=== PATIENT | male | born 1925 | race Caucasian/White ===

== ENCOUNTER 2017-01-20 11:17 | Inpatient (IN) | payer OTHER ==
[2017-01-20] VITALS (10 sets, daily range): BP systolic 78–97; BP diastolic 46–72
[~2017-01-20] VITALS: Ht 172.7 cm; Wt 44.9 kg
[2017-01-20 11:41] LABS: BASO % 0 % (0-3); CALCIUM 9.2 mg/dL (8.5-10.1); EOS % 0 % (0-3); GFR 70.4; HEMATOCRIT 45.5 % (39.0-53.0); HEMOGLOBIN 14.8 g/dL (13.0-17.5); LYMPH # 0.6 x10^3/uL (1.0-4.8); LYMPH % 4 % (24-48); MEAN CORPUSCULAR HEMOGLOBIN 29 pg (25-35); MEAN CORPUSCULAR HGB CONC 33 g/dL (31-37); MEAN CORPUSCULAR VOLUME 89 fL (79-100); MONO % 4 % (0-9); NEUT % 92 % (31-73); PLATELET COUNT 414 x10^3/uL (140-400); POTASSIUM 4.3 mmol/L (3.5-5.1); RED BLOOD COUNT 5.11 x10^6/uL (4.30-5.70); WHITE BLOOD COUNT 15.3 x10^3/uL (4.0-11.0)
[2017-01-20] MEDS ORDERED: IPRATRPIUM/ALBUTEROL 0.5/2.5MG 3 ML NEBU. NEB ONE (11:45)
[2017-01-20 11:46] LABS: ALBUMIN 2.6 g/dL (3.4-5.0); DIRECT BILIRUBIN 0.9 mg/dL (0.0-0.2); TOTAL BILIRUBIN 1.3 mg/dL (0.2-1.0)
[2017-01-20 12:14] LABS: PLT ESTIMATE INCREASED (ADEQUATE)
--- NOTE | 2017-01-20 12:28 | EKG ---
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
--- NOTE | 2017-01-20 12:28 | RAD ---
AP portable chest radiograph 01/20/2017 Clinical History: Shortness of breath. An AP portable erect digital radiograph of the chest was obtained. No previous studies are available for comparison. The cardiac silhouette is borderline enlarged. The thoracic aorta is tortuous. Atherosclerotic calcification of the thoracic aorta is seen. Probable areas of honeycombing and bronchiectasis are seen involving both lower lobes. Areas of increased opacity are seen involving both lower lobes which may reflect areas of scarring and/or superimposed infiltrates. No pneumothorax or pleural effusion is seen. Degenerative changes are seen involving the thoracic spine. Impression: 1. Areas of probable honeycombing and bronchiectasis are seen involving both lower lobes. 2. Areas of increased opacity are seen involving both lower lobes which may reflect areas of scarring and/or superimposed infiltrates.
[2017-01-20] MEDS ORDERED: FUROSEMIDE 40 MG/4 ML VIAL. IVP ONE (12:30)
[2017-01-20 12:42] LABS: HCO3 ABG 31 mmol/L (21-28); PCO2 ABG 57 mmHg (35-46); PH ABG 7.35 (7.35-7.45); PO2 ABG 115 mmHg (65-108); SAT O2 ABG 97 % (92-99)
[2017-01-20 12:44] LABS: FIO2 ABG 40
[2017-01-20] MEDS ORDERED: CEFTRIAXONE 1GM IVPB FOR OMNI 50 ML IV ONE ×2 (12:45)
[2017-01-20] MEDS ORDERED: AZITHRMYCN 500MG IVPB FOR OMNI 250 ML IV ONE (12:45)
--- NOTE | 2017-01-20 12:54 | PHYS DOC ---
Past Medical History Past Medical History: High Cholesterol, Hypertension Additional Past Medical Histor: ULCER Additional Past Surgical Histo: POSSIBLE BACK SURGERY Alcohol Use: None Drug Use: None Adult General Chief Complaint Chief Complaint: DYSPNEA/RESPIRATOY DISTRESS HPI HPI 89-year-old male presenting to the emergency department today with worsening shortness of breath. His shortness of breath is been present for the past 24-48 hours. He has a history of hypertension which she stopped taking his medications for approximately one week ago. His 2 daughters are here with him today. They've been trying to get into a doctor however unfortunately have not been able to. His shortness of breath is with exertion. Location lungs. Duration intermittent. Alleviated by BiPAP. EMS was called today after the patient had declined. Upon their arrival the patient was saturating in the mid to low 80 percents. He was placed on BiPAP which improved his saturations and was brought in for further evaluation workup and care. Review of systems is negative for abdominal pain nausea vomiting fevers or chills. All other review of systems is negative unless otherwise noted in history of present illness. Review of Systems Review of Systems SEE ABOVE. Current Medications Current Medications Current Medications Medications (Trade) Dose Ordered Sig/Joseph Start Time Stop Time Status Last Admin Dose Admin Albuterol/ Ipratropium (Duoneb) 3 ml 1X ONCE 01/20/17 11:45 01/20/17 11:46 DC 01/20/17 12:06 3 ML Furosemide (Lasix) 40 mg 1X ONCE 01/20/17 12:30 01/20/17 12:31 DC 01/20/17 12:29 40 MG Allergies Allergies Allergies Coded Allergies Type Severity Reaction Last Updated Verified No Known Drug Allergies 01/20/17 No Physical Exam Physical Exam Constitutional: Well developed, well nourished, pt is tachypneic on bipap, non- toxic appearance. HENT: Normocephalic, atraumatic, bilateral external ears normal, oropharynx moist, no oral exudates, nose normal. [] Eyes: PERRLA, EOMI, conjunctiva normal, no discharge. Neck: Normal range of motion, no tenderness, supple, no stridor. [] Cardiovascular:Heart rate regular rhythm, no murmur [] Lungs & Thorax: Patient has harsh lung sounds on inspiration and expiration with mild wheezing bilaterally. Crackles present in the bases. Abdomen: Bowel sounds normal, soft, no tenderness, no masses, no pulsatile masses. [] Skin: Warm, dry, no erythema, no rash. Back: No tenderness, no CVA tenderness. [] Extremities: No tenderness, no cyanosis, no clubbing, ROM intact, no edema. [] Neurologic: Alert and oriented X 3, normal motor function, normal sensory function, no focal deficits noted. Psychologic: Affect normal, judgement normal, mood normal. [] Current Patient Data Vital Signs Vital Signs Date Time Temp Pulse Resp B/P Pulse Ox O2 Delivery O2 Flow Rate FiO2 01/20/17 12:06 98 BiPAP/CPAP 01/20/17 11:17 99.1 112 50 127/76 40 99.1 Lab Values Laboratory Tests Test 01/20/17 11:20 White Blood Count 15.3x10^3/uL (4.0-11.0) H Red Blood Count 5.11x10^6/uL (4.30-5.70) Hemoglobin 14.8g/dL (13.0-17.5) Hematocrit 45.5% (39.0-53.0) Mean Corpuscular Volume 89fL (79-100) Mean Corpuscular Hemoglobin 29pg (25-35) Mean Corpuscular Hemoglobin Concent 33g/dL (31-37) Red Cell Distribution Width 15.0% (11.5-14.5) H Platelet Count 414x10^3/uL (140-400) H Neutrophils (%) (Auto) 92% (31-73) H Lymphocytes (%) (Auto) 4% (24-48) L Monocytes (%) (Auto) 4% (0-9) Eosinophils (%) (Auto) 0% (0-3) Basophils (%) (Auto) 0% (0-3) Neutrophils # (Auto) 14.1x10^3uL (1.8-7.7) H Lymphocytes # (Auto) 0.6x10^3/uL (1.0-4.8) L Monocytes # (Auto) 0.6x10^3/uL (0.0-1.1) Eosinophils # (Auto) 0.0x10^3/uL (0.0-0.7) Basophils # (Auto) 0.0x10^3/uL (0.0-0.2) Segmented Neutrophils % 83% (35-66) H Band Neutrophils % 7% (0-9) Lymphocytes % 2% (24-48) L Monocytes % 8% (0-10) Platelet Estimate Increased (ADEQUATE) Sodium Level 142mmol/L (136-145) Potassium Level 4.3mmol/L (3.5-5.1) Chloride Level 101mmol/L (98-107) Carbon Dioxide Level 31mmol/L (21-32) Anion Gap 10 (6-14) Blood Urea Nitrogen 23mg/dL (8-26) Creatinine 1.0mg/dL (0.7-1.3) Estimated GFR (Cockcroft-Gault) 70.4 Glucose Level 129mg/dL (70-99) H Lactic Acid Level 2.8mmol/L (0.4-2.0) H Calcium Level 9.2mg/dL (8.5-10.1) Total Bilirubin 1.3mg/dL (0.2-1.0) H Direct Bilirubin 0.9mg/dL (0.0-0.2) H Aspartate Amino Transferase (AST) 33U/L (15-37) Alanine Aminotransferase (ALT) 30U/L (16-63) Alkaline Phosphatase 92U/L (46-116) Troponin I Quantitative 0.018ng/mL (0.000-0.055) KO-[id number]-Type Natriuretic Peptide 2298pg/mL (0-449) H Total Protein 8.0g/dL (6.4-8.2) Albumin 2.6g/dL (3.4-5.0) L Lipase 74U/L (73-393) Laboratory Tests 01/20/17 11:20 Laboratory Tests 01/20/17 11:20 EKG EKG [] EKG shows sinus rhythm with a tachycardic rate. [place] is leftward. Intervals are within normal limits. ST segments are congruent. 3 PVCs noted. Not consistent with acute ischemia. Radiology/Procedures Radiology/Procedures [facility] [address] [place] [address] IMAGING REPORT Signed PATIENT: FILEMON HEATH ACCOUNT: [id number] : 1925 LOCATION: ER AGE: 89 SEX: M EXAM STATUS: REG ER ORD. PHYSICIAN: ANSELMO BOURGEOIS MD REASON: chest pain PROCEDURE: CHEST AP ONLY AP portable chest radiograph 01/20/2017 Clinical History: Shortness of breath. An AP portable erect digital radiograph of the chest was obtained. No previous studies are available for comparison. The cardiac silhouette is borderline enlarged. The thoracic aorta is tortuous. Atherosclerotic calcification of the thoracic aorta is seen. Probable areas of honeycombing and bronchiectasis are seen involving both lower lobes. Areas of increased opacity are seen involving both lower lobes which may reflect areas of scarring and/or superimposed infiltrates. No pneumothorax or pleural effusion is seen. Degenerative changes are seen involving the thoracic spine. Impression: 1. Areas of probable honeycombing and bronchiectasis are seen involving both lower lobes. 2. Areas of increased opacity are seen involving both lower lobes which may reflect areas of scarring and/or superimposed infiltrates. DICTATED and SIGNED BY: IZZY FISHER MD DATE: 01/20/17 1222 CC: ANSELMO BOURGEOIS MD; ANDREW MCKINNON MD ~ [] Course & Med Decision Making Course & Med Decision Making Pertinent Labs and Imaging studies reviewed. (See chart for details) [] 89-year-old gentleman presenting to the emergency Department with hypoxia and shortness of breath. Triage vital signs showed his oxygen saturations had improved and placed on BiPAP by paramedics. Tachycardia present. BiPAP initiated here in the emergency department. Chest x-ray shows volume overload versus infiltrate. Blood work obtained. IV access obtained. Jimenez placed. Lasix administered in the emergency department. The patient was then admitted to our hospital for further evaluation workup and care. Cardiology and pulmonology consulted. I discussed the case with Dr. He around 1 PM at which point the patient's care was transferred. Dragon Disclaimer Dragon Disclaimer This electronic medical record was generated, in whole or in part, using a voice recognition dictation system. Departure Departure Impression: Primary Impression: Acute respiratory failure with hypoxia Additional Impression: CHF (congestive heart failure) Disposition: ADMITTED INPATIENT Admitting Physician: Edwina He Condition: IMPROVED Referrals: ANDREW MCKINNON MD (PCP) Critical Care Time Critical care time was [35] minutes exclusive of procedures. Time was spent evaluating the patient, ordering the administration of ventilation noninvasively , reviewing blood work, reviewing chest x-ray, and discussing with the admitting provider. Problem Qualifiers ANSELMO BOURGEOIS MD Jan 20, 2017 12:54
[2017-01-20] MEDS ORDERED: MORPHINE SULFATE 2 MG/ML DISP.SYRIN. IV PRN (13:00)
[2017-01-20] MEDS ORDERED: ONDANSETRON PF 4 MG/2 ML VIAL. IV PRN ×2 (13:00→15:29)
[2017-01-20 13:07] LABS: BILIRUBIN,URINE SMALL (NEG); GLUCOSE,URINE NEGATIVE (NEG); NITRITE,URINE NEGATIVE (NEG); PROTEIN,URINE NEGATIVE (NEG-TRACE)
[2017-01-20 13:17] LABS: BACTERIA,URINE MANY /HPF (0-FEW)
--- NOTE | 2017-01-20 14:10 | ACF ---
Admission Forms Criteria RESPIRATORY FAILURE [facility] Clinical Indications for Admission to Inpatient Care (Place 'X' for any and all applicable criteria): Hospital admission is needed for appropriate care of the patient because of acute respiratory failure or insufficiency as indicated by ANY ONE of the following(1)(2)(3)(4)(5)(6)(7)(8): [X]I. Mechanical ventilation needed (acute invasive or noninvasive) [X]II. Severe ventilation deficit as indicated by ANY ONE of the following (9) [ ]a) Respiratory acidosis (pH less than 7.32 and partial pressure of carbon dioxide greater than 40 mm Hg (5.3 kPa)) [X]b) Partial pressure of carbon dioxide greater than 44 mm Hg (5.9 kPa ) (new) [ ]c) Airflow measurements less than 25% of predicted (eg, peak expiratory flow rate less than 100 L/minute) [ ]d) Forced vital capacity less than 15 mL/kg of ideal body weight, or 50% decrease in vital capacity from baseline [ ]III. Noncardiac pulmonary edema not resolving with rapid emergency treatment (8) [X]IV. Severe respiratory distress as indicated by ANY ONE of the following: [X]a) Severe tachypnea (respiratory rate greater than 30, greater than 45 for 6-month-old, greater than 60 for ) [ ]b) Severe hypoxemia (partial pressure of oxygen less than 50 mm Hg ( 6.7 kPa) on greater than 50% oxygen or partial pressure of oxygen to FIO2 ratio less than 200) [ ]c) Mental status deterioration from respiratory disease [ ]V. Airway obstruction or inadequate protection [A](10)(11) The original [employer] content created by [employer] has been revised. The portions of the content which have been revised are identified through the use of italic text or in bold, and [facility] has neither reviewed nor approved the modified material. All other unmodified content is copyright [employer]. Please see references footnoted in the original [employer] edition 2016 Admission Criteria Met?: Yes AYAKA TAYLOR Jan 20, 2017 14:10
[2017-01-20] MEDS: IPRATRPIUM/ALBUTEROL 0.5/2.5MG 3 ML NEBU. NEB SCH ×2 (15:08→20:22)
[2017-01-20] MEDS ORDERED: GUAIFENESIN DM 200MG/20MG 10 ML SYRUP. PO PRN (15:30)
[2017-01-20] MEDS ORDERED: ACETAMINOPHEN 500 MG TABLET PO PRN (15:30)
[2017-01-20] MEDS ORDERED: CALCIUM CARBONATE 500 MG TAB.CHEW PO PRN (15:30)
[2017-01-20 15:32] LABS: HCO3 ABG 29 mmol/L (21-28); PCO2 ABG 52 mmHg (35-46); PH ABG 7.37 (7.35-7.45); PO2 ABG 89 mmHg (65-108); SAT O2 ABG 96 % (92-99)
--- NOTE | 2017-01-20 15:41 | PDOC1 ---
History and Physical Date of Admission Date of Admission DATE: 01/20/17 TIME: 15:30 Identification/Chief Complaint Chief Complaint soa, change in MS Problems: Source Source: Caregiver, Chart review, Patient History of Present Illness History of Present Illness 89 y.o male who does not frequent MDs, no past records here, brought in by concerned sisters bec of SOA and change in MS that was transient, As per EMS, hypoxic on the field, 80s sats, started on BIPAP with the ff ABG 7.3/57/115 , NOt confused anymore. No known hx CHF, CXR: I have personally reviewed: Impression: 1. Areas of probable honeycombing and bronchiectasis are seen involving both lower lobes. 2. Areas of increased opacity are seen involving both lower lobes which may reflect areas of scarring and/or superimposed infiltrates. Prev smoker, quit many yrs ago, does not take any real meds at home. No known CAD or stents, BNP 2300, lactate 2,3, VS ok WBC 15, hgb good, platelets 415 Sisters say have been weak, lost a lot of weight > 10 lbs - does not want to see MD lobo he knew they would zero in on his weight loss. HAd c scope many yrs ago, normal Dec appetite, only 3 bites and is done Past Medical History Cardiovascular: No pertinent hx Pulmonary: No pertinent hx GI: No pertinent hx Heme/Onc: No pertinent hx Hepatobiliary: No pertinent hx Psych: No pertinent hx Rheumatologic: No pertinent hx Infectious disease: No pertinent hx ENT: No pertinent hx Renal/: No pertinent hx Endocrine: No pertinent hx Dermatology: No pertinent hx Past Surgical History Past Surgical History: No pertinent history Family History Family History: No Significant Social History Smoke: Quit ALCOHOL: none Drugs: None Current Problem List Problem List Problems Medical Problems: (1) Acute respiratory failure with hypoxia Status: Acute (2) CHF (congestive heart failure) Status: Acute Problems: Current Medications Current Medications Current Medications Albuterol/ Ipratropium (Duoneb) 3 ml 1X ONCE NEB Last administered on 12:06; Start 01/20/17 at 11:45; Stop 01/20/17 at 11:46; Status DC Furosemide 40 mg 40 mg 1X ONCE IVP Last administered on 01/20/17 12:29; Start 01/20/17 at 12:30; Stop 01/20/17 at 12:31; Status DC Azithromycin 250 ml @ 250 mls/hr 1X ONCE IV Last administered on 01/20/17 13 :26; Start 01/20/17 at 12:45; Stop 01/20/17 at 13:44; Status DC Ceftriaxone Sodium 50 ml @ 100 mls/hr 1X ONCE IV ; Start 01/20/17 at 12:45; Stop 01/20/17 at 12:45; Status DC Ceftriaxone Sodium (Rocephin 1gm Ivpb For Omni) 50 ml @ 100 mls/hr 1X ONCE IV Last administered on 01/20/17 13:10; Start 01/20/17 at 12:45; Stop 01/20/17 at 13:14; Status DC Ondansetron HCl (Zofran) 4 mg PRN Q8HRS PRN IV NAUSEA/VOMITING; Start 01/20/17 at 13:00; Stop 01/21/17 at 12:59 Morphine Sulfate 2 mg PRN Q2HR PRN IV PAIN; Start 01/20/17 at 13:00; Stop 01/21 at 12:59 Albuterol/ Ipratropium (Duoneb) 3 ml RTQID NEB Last administered on 01/20/17 15:08; Start 01/20/17 at 16:00; Stop 01/21/17 at 15:59 Allergies Allergies: Coded Allergies: No Known Drug Allergies (Unverified , 01/20/17) ROS Review of System limited on bipap, positive for weight loss and dec appetite General: YES: Other (weight loss) PSYCHOLOGICAL ROS: No: Anxiety, Behavioral Disorder, Concentration difficultie , Decreased libido, Depression, Disorientation, Hallucinations, Hostility, Irritablity, Memory difficulties, Mood Swings, Obsessive thoughts, Other, Physical abuse, Sexual abuse, Sleep disturbances, Suicidal ideation Eyes: No Blurry vision, No Decreased vision, No Double vision, No Dry eyes, No Excessive tearing, No Eye Pain, No Itchy Eyes, No Loss of vision, No Other, No Photophobia, No Scotomata, No Uses contacts, No Uses glasses HEENT: No: Epistaxis, Heacaches, Hearing change, Nasal congestion, Nasal discharge, Oral lesions, Other, Sinus pain, Sneezing, Snoring, Sore Throat, Tinnitus, Vertigo, Visual Changes, Vocal changes Hematological and Lymphatic: No: Bleeding Problems, Blood Clots, Blood Transfusions, Brusing, Night Sweats, Other, Pallor, Swollen Lymph Nodes Respiratory: No: Cough, Hemoptysis, Orthopnea, Other, Pleuritic Pain, SOB with excertion, Shortness of breath, Sputum Changes, Stridor, Tachypnea, Wheezing Cardiovascular: No Chest Pain, No Edema, No Lt Headedness, No Orthopnea, No Other, No Palpitations, No Paroxysmal Noc. Dyspnea Gastrointestinal: No Abdominal Pain, No Constipation, No Diarrhea, No Hematochezia, No Melena, No Nausea, No Other, No Vomiting Genitourinary: No , No , No , No , No , No , No , No Discharge, No Dysuria, No Flank Pain, No Frequency, No Hematuria, No Incontinence, No Other, No Pain, No Retention, No Urgency Musculoskeletal: No Gait Disturbance, No Joint Pain, No Joint Stiffness, No Joint Swelling, No Muscle Pain, No Muscular Weakness, No Other, No Pain In:, No Swelling In: Neurological: No Behavorial Changes, No Bowel/Bladder ControlChng, No Confusion , No Dizziness, No Gait Disturbance, No Headaches, No Impaired Coord/balance, No Memory Loss, No Numbness/Tingling, No Other, No Seizures, No Speech Problems , No Tremors, No Visual Changes, No Weakness Skin: No Acne, No Dry Skin, No Eczema, No Hair Changes, No Lumps, No Mole Changes, No Mottling, No Nail Changes, No Other, No Pruritus, No Rash, No Skin Lesion Changes Physical Exam General: Other (on BIPAP, awake, oriented, smiles) HEENT: Atraumatic, PERRLA, EOMI Lungs: Normal air movement, Other (no rales, rhocnhi, wheezing) Heart: S1S2, RRR, no thrills, no rubs Cardiovascular: S1, S2 Breasts: Normal Male Genitals Exam: normal genitalia, normal prostate Rectal Exam: not examined PELVIC: Nml ext genitalia Extremities: No clubbing, No cyanosis, No edema, Normal pulses, No tenderness/ swelling Skin: No rashes, No breakdown, No significant lesion Neuro: Normal gait, Normal speech, Strength at 5/5 X4 ext, Normal tone, Sensation intact, Cranial nerves 3-12 NL, Reflexes 2+ Psych/Mental Status: Mental status NL, Mood NL Vitals Vitals Vital Signs Date Time Temp Pulse Resp B/P Pulse Ox O2 Delivery O2 Flow Rate FiO2 01/20/17 15:09 96 BiPAP/CPAP 01/20/17 13:30 102 44 35 01/20/17 13:15 105/60 01/20/17 11:17 99.1 99.1 Labs Labs Laboratory Tests Test 01/20/17 11:20 01/20/17 12:23 01/20/17 12:45 White Blood Count 15.3x10^3/uL (4.0-11.0) Red Blood Count 5.11x10^6/uL (4.30-5.70) Hemoglobin 14.8g/dL (13.0-17.5) Hematocrit 45.5% (39.0-53.0) Mean Corpuscular Volume 89fL (79-100) Mean Corpuscular Hemoglobin 29pg (25-35) Mean Corpuscular Hemoglobin Concent 33g/dL (31-37) Red Cell Distribution Width 15.0% (11.5-14.5) Platelet Count 414x10^3/uL (140-400) Neutrophils (%) (Auto) 92% (31-73) Lymphocytes (%) (Auto) 4% (24-48) Monocytes (%) (Auto) 4% (0-9) Eosinophils (%) (Auto) 0% (0-3) Basophils (%) (Auto) 0% (0-3) Neutrophils # (Auto) 14.1x10^3uL (1.8-7.7) Lymphocytes # (Auto) 0.6x10^3/uL (1.0-4.8) Monocytes # (Auto) 0.6x10^3/uL (0.0-1.1) Eosinophils # (Auto) 0.0x10^3/uL (0.0-0.7) Basophils # (Auto) 0.0x10^3/uL (0.0-0.2) Segmented Neutrophils % 83% (35-66) Band Neutrophils % 7% (0-9) Lymphocytes % 2% (24-48) Monocytes % 8% (0-10) Platelet Estimate Increased (ADEQUATE) Sodium Level 142mmol/L (136-145) Potassium Level 4.3mmol/L (3.5-5.1) Chloride Level 101mmol/L (98-107) Carbon Dioxide Level 31mmol/L (21-32) Anion Gap 10 (6-14) Blood Urea Nitrogen 23mg/dL (8-26) Creatinine 1.0mg/dL (0.7-1.3) Estimated GFR (Cockcroft-Gault) 70.4 Glucose Level 129mg/dL (70-99) Lactic Acid Level 2.8mmol/L (0.4-2.0) Calcium Level 9.2mg/dL (8.5-10.1) Magnesium Level 2.0mg/dL (1.8-2.4) Total Bilirubin 1.3mg/dL (0.2-1.0) Direct Bilirubin 0.9mg/dL (0.0-0.2) Aspartate Amino Transf (AST/SGOT) 33U/L (15-37) Alanine Aminotransferase (ALT/SGPT) 30U/L (16-63) Alkaline Phosphatase 92U/L (46-116) Troponin I Quantitative 0.018ng/mL (0.000-0.055) MS-Ypi-L-Type Natriuretic Peptide 2298pg/mL (0-449) Total Protein 8.0g/dL (6.4-8.2) Albumin 2.6g/dL (3.4-5.0) Lipase 74U/L (73-393) O2 Saturation 97% (92-99) Arterial Blood pH 7.35 (7.35-7.45) Arterial Blood pCO2 at Patient Temp 57mmHg (35-46) Arterial Blood pO2 at Patient Temp 115mmHg (65-108) Arterial Blood HCO3 31mmol/L (21-28) Arterial Blood Base Excess 3mmol/L (-3-3) FiO2 40 Urine Collection Type Unknown Urine Color Joseline Urine Clarity Clear Urine pH 6.0 Urine Specific [place] 1.020 Urine Protein Negativemg/dL (NEG-TRACE) Urine Glucose (UA) Negativemg/dL (NEG) Urine Ketones (Stick) Tracemg/dL (NEG) Urine Blood Moderate (NEG) Urine Nitrite Negative (NEG) Urine Bilirubin Small (NEG) Urine Urobilinogen Dipstick 2.0mg/dL (0.2 mg/dL) Urine Leukocyte Esterase Moderate (NEG) Urine RBC 6-10/HPF (0-2) Urine WBC 11-20/HPF (0-4) Urine Bacteria Many/HPF (0-FEW) Urine Mucus Mod/LPF Laboratory Tests Test 01/20/17 11:20 01/20/17 12:23 01/20/17 12:45 White Blood Count 15.3x10^3/uL (4.0-11.0) Red Blood Count 5.11x10^6/uL (4.30-5.70) Hemoglobin 14.8g/dL (13.0-17.5) Hematocrit 45.5% (39.0-53.0) Mean Corpuscular Volume 89fL (79-100) Mean Corpuscular Hemoglobin 29pg (25-35) Mean Corpuscular Hemoglobin Concent 33g/dL (31-37) Red Cell Distribution Width 15.0% (11.5-14.5) Platelet Count 414x10^3/uL (140-400) Neutrophils (%) (Auto) 92% (31-73) Lymphocytes (%) (Auto) 4% (24-48) Monocytes (%) (Auto) 4% (0-9) Eosinophils (%) (Auto) 0% (0-3) Basophils (%) (Auto) 0% (0-3) Neutrophils # (Auto) 14.1x10^3uL (1.8-7.7) Lymphocytes # (Auto) 0.6x10^3/uL (1.0-4.8) Monocytes # (Auto) 0.6x10^3/uL (0.0-1.1) Eosinophils # (Auto) 0.0x10^3/uL (0.0-0.7) Basophils # (Auto) 0.0x10^3/uL (0.0-0.2) Segmented Neutrophils % 83% (35-66) Band Neutrophils % 7% (0-9) Lymphocytes % 2% (24-48) Monocytes % 8% (0-10) Platelet Estimate Increased (ADEQUATE) Sodium Level 142mmol/L (136-145) Potassium Level 4.3mmol/L (3.5-5.1) Chloride Level 101mmol/L (98-107) Carbon Dioxide Level 31mmol/L (21-32) Anion Gap 10 (6-14) Blood Urea Nitrogen 23mg/dL (8-26) Creatinine 1.0mg/dL (0.7-1.3) Estimated GFR (Cockcroft-Gault) 70.4 Glucose Level 129mg/dL (70-99) Lactic Acid Level 2.8mmol/L (0.4-2.0) Calcium Level 9.2mg/dL (8.5-10.1) Magnesium Level 2.0mg/dL (1.8-2.4) Total Bilirubin 1.3mg/dL (0.2-1.0) Direct Bilirubin 0.9mg/dL (0.0-0.2) Aspartate Amino Transf (AST/SGOT) 33U/L (15-37) Alanine Aminotransferase (ALT/SGPT) 30U/L (16-63) Alkaline Phosphatase 92U/L (46-116) Troponin I Quantitative 0.018ng/mL (0.000-0.055) SV-Nso-O-Type Natriuretic Peptide 2298pg/mL (0-449) Total Protein 8.0g/dL (6.4-8.2) Albumin 2.6g/dL (3.4-5.0) Lipase 74U/L (73-393) O2 Saturation 97% (92-99) Arterial Blood pH 7.35 (7.35-7.45) Arterial Blood pCO2 at Patient Temp 57mmHg (35-46) Arterial Blood pO2 at Patient Temp 115mmHg (65-108) Arterial Blood HCO3 31mmol/L (21-28) Arterial Blood Base Excess 3mmol/L (-3-3) FiO2 40 Urine Collection Type Unknown Urine Color Joseline Urine Clarity Clear Urine pH 6.0 Urine Specific [place] 1.020 Urine Protein Negativemg/dL (NEG-TRACE) Urine Glucose (UA) Negativemg/dL (NEG) Urine Ketones (Stick) Tracemg/dL (NEG) Urine Blood Moderate (NEG) Urine Nitrite Negative (NEG) Urine Bilirubin Small (NEG) Urine Urobilinogen Dipstick 2.0mg/dL (0.2 mg/dL) Urine Leukocyte Esterase Moderate (NEG) Urine RBC 6-10/HPF (0-2) Urine WBC 11-20/HPF (0-4) Urine Bacteria Many/HPF (0-FEW) Urine Mucus Mod/LPF VTE Prophylaxis Ordered VTE Prophylaxis Devices: Yes VTE Pharmacological Prophylaxi: Yes Assessment/Plan Assessment/Plan 1. Acute hypoxic respi failure 2. Possible chf/pulm edema? 3. Elevated BNP 4. Weight loss, poor PO, dec appetite 5. GEriatric, frailty, high fall risk 6. Transient encephalopathy likey sec to hypoxia, POA, resolved 7,. Mod PCM 8. SIRS pOA, no sepsis 9. reactive thrombocytosis 10. Elevated lactate 11. Leukocytosis, reactive vs infectious PLAN: ICU admit BIPAP Pulmo and cards consult nebs EMpiric antibiotics Nutrition consult Appetite stimulant DVT prophy MAy check PSA Pt/OT SW for SNU screening LAbs again in AM Dw sisters, seen at ER Dw ER ADELINA Peralta MD Jan 20, 2017 15:40
[2017-01-20] MEDS ORDERED: PANTOPRAZOLE 40 MG TABLET.DR. PO SCH (16:00)
[2017-01-20] MEDS ORDERED: PNEUMOCOCCAL VAX SCREEN BY RX. MC ONE (16:00)
[2017-01-20] MEDS ORDERED: ENOXAPARIN 40 MG/0.4 ML SYRINGE. SQ SCH (16:00)
[2017-01-20] MEDS ORDERED: AMLO5TAB2 PO (16:27)
[2017-01-20] MEDS ORDERED: METO100T2 PO (16:27)
[2017-01-20] MEDS ORDERED: [UNRECOGNIZED DRUG - OTHER] (16:27)
[2017-01-20] MEDS ORDERED: LOVA40TA2 PO (16:27)
[2017-01-20 18:38] LABS: FIO2 ABG 35
[2017-01-21] VITALS (17 sets, daily range): BP systolic 81–110; BP diastolic 46–96
[2017-01-21 01:11] LABS: BASO % 0 % (0-3); EOS % 0 % (0-3); HEMATOCRIT 40.2 % (39.0-53.0); LYMPH # 0.6 x10^3/uL (1.0-4.8); LYMPH % 5 % (24-48); MEAN CORPUSCULAR HEMOGLOBIN 29 pg (25-35); MEAN CORPUSCULAR HGB CONC 32 g/dL (31-37); MEAN CORPUSCULAR VOLUME 89 fL (79-100); MONO % 6 % (0-9); NEUT % 89 % (31-73); PLATELET COUNT 332 x10^3/uL (140-400); RED CELL DISTRIBUTION WIDTH 14.9 % (11.5-14.5); WHITE BLOOD COUNT 12.3 x10^3/uL (4.0-11.0)
[2017-01-21 01:19] LABS: CALCIUM 8.8 mg/dL (8.5-10.1); GFR 70.4
[2017-01-21] MEDS ORDERED: MEGESTROL 20 MG TABLET. PO SCH (09:00)
[2017-01-21] MEDS ORDERED: PNEUMOC CONJ VACC 23-VALENT 0.5 ML VIAL. VAX IM ONE (09:00)
[2017-01-21] MEDS: IPRATRPIUM/ALBUTEROL 0.5/2.5MG 3 ML NEBU. NEB SCH ×2 (09:15→16:03)
--- NOTE | 2017-01-21 10:53 | PDOC2 ---
YAMILKA NEFF COMMUNITY ASSOCIATE 01/21/17 1053: CARDIAC CONSULT DATE OF CONSULT Date of Consult DATE: 01/21/17 TIME: 10:49 REASON FOR CONSULT Reason for Consult: CHF REFERRING PHYSICIAN Referring Physician: Dr. Santa SOURCE Source: Chart review HISTORY OF PRESENT ILLNESS HISTORY OF PRESENT ILLNESS This is an 89 yo male who presented with complaints of shortness of breath. Patient reports shortness of breath has been ongoing for a couple of years. Worse, recently. Reports cough associated with eating/drinking for the last couple of months. Denies any LE edema or orthopnea. Not previously on oxygen therapy. Stop taking all medications a couple of weeks ago. Reports decreased appetite and weight loss of greater than 15lbs over the last 2-3 months or so. Additionally denies any chest pain, palpitations, dizziness, or diaphoresis. No recent illness or fevers. Reports having sore on bottom; is painful. Lives at home alone but daughter prepare meals for 1-2 weeks at a time. PAST MEDICAL HISTORY Cardiovascular: HTN, Hyperlipidemia Pulmonary: No pertinent hx GI: No pertinent hx Heme/Onc: No pertinent hx Hepatobiliary: No pertinent hx Psych: No pertinent hx Musculoskeletal: Osteoarthritis Infectious disease: No pertinent hx ENT: No pertinent hx Renal/: No pertinent hx Endocrine: No pertinent hx Dermatology: No pertinent hx PAST SURGICAL HISTORY Past Surgical History: Total knee replacement (bilateral ) FAMILY HISTORY Family History: Hypertension SOCIAL HISTORY Smoke: No ALCOHOL: none Drugs: None Lives: Alone CURRENT MEDICATIONS CURRENT MEDICATIONS Current Medications Medications (Trade) Dose Ordered Sig/Joseph Route PRN Reason Start Time Stop Time Status Last Admin Dose Admin Albuterol/ Ipratropium (Duoneb) 3 ml 1X ONCE NEB 01/20/17 11:45 01/20/17 11:46 DC 01/20/17 12:06 Furosemide 40 mg 40 mg 1X ONCE IVP 01/20/17 12:30 01/20/17 12:31 DC 01/20/17 12:29 Azithromycin 250 ml @ 250 mls/hr 1X ONCE IV 01/20/17 12:45 01/20/17 13:44 DC 01/20/17 13:26 Ceftriaxone Sodium (Rocephin 1gm Ivpb For Omni) 50 ml @ 100 mls/hr 1X ONCE IV 01/20/17 12:45 01/20/17 13:14 DC 01/20/17 13:10 Morphine Sulfate 2 mg PRN Q2HR PRN IV PAIN 01/20/17 13:00 01/21/17 12:59 01/20/17 19:52 Albuterol/ Ipratropium 3 ml 3 ml RTQID NEB 01/20/17 16:00 01/21/17 15:59 01/21/17 09:15 Levofloxacin/ Dextrose (LEVAQUIN 500mg PREMIX) 100 ml @ 100 mls/hr Q24H IV 01/20/17 16:00 01/20/17 17:56 Enoxaparin Sodium (Lovenox 40mg Syringe) 40 mg Q24H SQ 01/20/17 16:00 01/20/17 17:58 Pantoprazole Sodium (Protonix) 40 mg DAILYAC PO 01/20/17 16:00 01/20/17 17:58 ALLERGIES ALLERGIES: Coded Allergies: No Known Drug Allergies (Unverified , 01/20/17) ROS Review of System 14 point ROS conducted with pertinent positives noted above in HPI PHYSICAL EXAM General: Alert, Oriented X3, Cooperative, No acute distress HEENT: Atraumatic, Mucous membr. moist/pink Lungs: Normal air movement Heart: Regular rate, Normal S1, Normal S2 Abdomen: Soft Extremities: No edema, Normal pulses Skin: No significant lesion Neuro: Normal speech, Sensation intact Psych/Mental Status: Mental status NL, Mood NL MUSCULOSKELETAL: Osteoarthritic changes both hands VITALS VITALS Vital Signs Date Time Temp Pulse Resp B/P Pulse Ox O2 Delivery O2 Flow Rate FiO2 01/21/17 09:15 98 Nasal Cannula 5.0 01/21/17 06:00 96 28 104/58 01/21/17 04:00 98.9 98.9 LABS Lab: Laboratory Tests Test 01/20/17 11:20 01/20/17 12:23 01/20/17 12:45 01/20/17 15:15 White Blood Count 15.3x10^3/uL (4.0-11.0) Red Blood Count 5.11x10^6/uL (4.30-5.70) Hemoglobin 14.8g/dL (13.0-17.5) Hematocrit 45.5% (39.0-53.0) Mean Corpuscular Volume 89fL (79-100) Mean Corpuscular Hemoglobin 29pg (25-35) Mean Corpuscular Hemoglobin Concent 33g/dL (31-37) Red Cell Distribution Width 15.0% (11.5-14.5) Platelet Count 414x10^3/uL (140-400) Neutrophils (%) (Auto) 92% (31-73) Lymphocytes (%) (Auto) 4% (24-48) Monocytes (%) (Auto) 4% (0-9) Eosinophils (%) (Auto) 0% (0-3) Basophils (%) (Auto) 0% (0-3) Neutrophils # (Auto) 14.1x10^3uL (1.8-7.7) Lymphocytes # (Auto) 0.6x10^3/uL (1.0-4.8) Monocytes # (Auto) 0.6x10^3/uL (0.0-1.1) Eosinophils # (Auto) 0.0x10^3/uL (0.0-0.7) Basophils # (Auto) 0.0x10^3/uL (0.0-0.2) Segmented Neutrophils % 83% (35-66) Band Neutrophils % 7% (0-9) Lymphocytes % 2% (24-48) Monocytes % 8% (0-10) Platelet Estimate Increased (ADEQUATE) Sodium Level 142mmol/L (136-145) Potassium Level 4.3mmol/L (3.5-5.1) Chloride Level 101mmol/L (98-107) Carbon Dioxide Level 31mmol/L (21-32) Anion Gap 10 (6-14) Blood Urea Nitrogen 23mg/dL (8-26) Creatinine 1.0mg/dL (0.7-1.3) Estimated GFR (Cockcroft-Gault) 70.4 Glucose Level 129mg/dL (70-99) Lactic Acid Level 2.8mmol/L (0.4-2.0) Calcium Level 9.2mg/dL (8.5-10.1) Magnesium Level 2.0mg/dL (1.8-2.4) Total Bilirubin 1.3mg/dL (0.2-1.0) Direct Bilirubin 0.9mg/dL (0.0-0.2) Aspartate Amino Transf (AST/SGOT) 33U/L (15-37) Alanine Aminotransferase (ALT/SGPT) 30U/L (16-63) Alkaline Phosphatase 92U/L (46-116) Troponin I Quantitative 0.018ng/mL (0.000-0.055) ZO-Gex-S-Type Natriuretic Peptide 2298pg/mL (0-449) Total Protein 8.0g/dL (6.4-8.2) Albumin 2.6g/dL (3.4-5.0) Lipase 74U/L (73-393) O2 Saturation 97% (92-99) 96% (92-99) Arterial Blood pH 7.35 (7.35-7.45) 7.37 (7.35-7.45) Arterial Blood pCO2 at Patient Temp 57mmHg (35-46) 52mmHg (35-46) Arterial Blood pO2 at Patient Temp 115mmHg (65-108) 89mmHg (65-108) Arterial Blood HCO3 31mmol/L (21-28) 29mmol/L (21-28) Arterial Blood Base Excess 3mmol/L (-3-3) 3mmol/L (-3-3) FiO2 40 35 Urine Collection Type Unknown Urine Color Joseline Urine Clarity Clear Urine pH 6.0 Urine Specific Cornish 1.020 Urine Protein Negativemg/dL (NEG-TRACE) Urine Glucose (UA) Negativemg/dL (NEG) Urine Ketones (Stick) Tracemg/dL (NEG) Urine Blood Moderate (NEG) Urine Nitrite Negative (NEG) Urine Bilirubin Small (NEG) Urine Urobilinogen Dipstick 2.0mg/dL (0.2 mg/dL) Urine Leukocyte Esterase Moderate (NEG) Urine RBC 6-10/HPF (0-2) Urine WBC 11-20/HPF (0-4) Urine Bacteria Many/HPF (0-FEW) Urine Mucus Mod/LPF Test 01/20/17 15:23 01/20/17 18:30 01/21/17 01:00 Lactic Acid Level 2.2mmol/L (0.4-2.0) Troponin I Quantitative 0.032ng/mL (0.000-0.055) 0.019ng/mL (0.000-0.055) White Blood Count 12.3x10^3/uL (4.0-11.0) Red Blood Count 4.50x10^6/uL (4.30-5.70) Hemoglobin 13.0g/dL (13.0-17.5) Hematocrit 40.2% (39.0-53.0) Mean Corpuscular Volume 89fL (79-100) Mean Corpuscular Hemoglobin 29pg (25-35) Mean Corpuscular Hemoglobin Concent 32g/dL (31-37) Red Cell Distribution Width 14.9% (11.5-14.5) Platelet Count 332x10^3/uL (140-400) Neutrophils (%) (Auto) 89% (31-73) Lymphocytes (%) (Auto) 5% (24-48) Monocytes (%) (Auto) 6% (0-9) Eosinophils (%) (Auto) 0% (0-3) Basophils (%) (Auto) 0% (0-3) Neutrophils # (Auto) 11.0x10^3uL (1.8-7.7) Lymphocytes # (Auto) 0.6x10^3/uL (1.0-4.8) Monocytes # (Auto) 0.7x10^3/uL (0.0-1.1) Eosinophils # (Auto) 0.0x10^3/uL (0.0-0.7) Basophils # (Auto) 0.0x10^3/uL (0.0-0.2) Sodium Level 144mmol/L (136-145) Potassium Level 4.0mmol/L (3.5-5.1) Chloride Level 103mmol/L (98-107) Carbon Dioxide Level 34mmol/L (21-32) Anion Gap 7 (6-14) Blood Urea Nitrogen 28mg/dL (8-26) Creatinine 1.0mg/dL (0.7-1.3) Estimated GFR (Cockcroft-Gault) 70.4 Glucose Level 100mg/dL (70-99) Calcium Level 8.8mg/dL (8.5-10.1) ASSESSMENT/PLAN ASSESSMENT/PLAN 1. Mildly elevated NT Pro BNP 2. Acute hypoxic respiratory failure 3. Leukocytosis with ? sepsis 4. ? aspiration 5. Tachycardia, reactive 6. H/o hypertension with present hypotension 7. Hyperlipidemia 8. Weight Loss; failure to thrive Recommendations Will check limited echo to evaluate LV function Pro BNP mildly elevated but is insignificant based upon age-adjustment. Do not suspect overt HF Will give gentle fluid bolus ST to evaluate swallow. Supportive care Follow pulmonary recommendations Palliative care consulted Problems: SULY VELOZ MD 01/21/17 1611: CARDIAC CONSULT ALLERGIES ALLERGIES: Coded Allergies: No Known Drug Allergies (Unverified , 01/20/17) ASSESSMENT/PLAN ASSESSMENT/PLAN Pt. seen and examined. Agree with above [employer] note. 89 y.o male with dyspnea. Normal cardiac exam. Echo grossly normal He is cachectic, has aspiration, possible infiltrates on CXR with elevated WBC and left shift in the setting of tachycardia, hypoxia. No significant cardiac issues. He is likely severely depressed Discussed with family that from a CV pers he is stable but has other issues as noted above Will follow prn. Thanks for consultation Problems: YAMILKA NEFF APRN Jan 21, 2017 10:53 SULY VELOZ MD Jan 21, 2017 16:11
[2017-01-21] MEDS ORDERED: IV NORMAL SALINE 1000ML BAG 500 ML IV ONE (11:15)
--- NOTE | 2017-01-21 12:03 | PDOC ---
Provider Note Provider Note dictated THAD EATON MD Jan 21, 2017 12:03
--- NOTE | 2017-01-21 12:41 | PDOC ---
PROGRESS NOTES Chief Complaint Chief Complaint CC: acute hypoxic respiratory failure, AMS History of Present Illness History of Present Illness Patient seen and evaluated at bedside. breathing improvement with bipap. Patient became hypotensive and tachycardic when attempting to sit him up. Appears frail; limited response, not following commands. Per family, patient has had over 10lbs of weight loss recently. Family adamantly denies patient is or was a smoker. family agreeable with palliative consult. d/w family and nurse. Vitals Vitals Vital Signs Date Time Temp Pulse Resp B/P Pulse Ox O2 Delivery O2 Flow Rate FiO2 01/21/17 12:00 Nasal Cannula 4.0 01/21/17 12:00 110 37 95/46 97 01/21/17 08:00 98.7 98.7 Physical Exam General: Alert, No acute distress, Other (frail, facial wasting, malnourished appearing ) Heart: Normal S1, Normal S2, Other (tachycardic ) Lungs: Other (coarse and diminished breath sounds bilaterally. On 4L NC. negative chest retractions and/or other accessory muscle use ) Abdomen: Soft, No tenderness Extremities: No cyanosis, No edema, No tenderness/swelling, Other Skin: No rashes, No breakdown, No significant lesion Labs LABS Laboratory Tests Test 01/20/17 12:45 01/20/17 15:15 01/20/17 15:23 01/20/17 18:30 Urine Collection Type Unknown Urine Color Joseline Urine Clarity Clear Urine pH 6.0 Urine Specific [place] 1.020 Urine Protein Negativemg/dL (NEG-TRACE) Urine Glucose (UA) Negativemg/dL (NEG) Urine Ketones (Stick) Tracemg/dL (NEG) Urine Blood Moderate (NEG) Urine Nitrite Negative (NEG) Urine Bilirubin Small (NEG) Urine Urobilinogen Dipstick 2.0mg/dL (0.2 mg/dL) Urine Leukocyte Esterase Moderate (NEG) Urine RBC 6-10/HPF (0-2) Urine WBC 11-20/HPF (0-4) Urine Bacteria Many/HPF (0-FEW) Urine Mucus Mod/LPF O2 Saturation 96% (92-99) Arterial Blood pH 7.37 (7.35-7.45) Arterial Blood pCO2 at Patient Temp 52mmHg (35-46) Arterial Blood pO2 at Patient Temp 89mmHg (65-108) Arterial Blood HCO3 29mmol/L (21-28) Arterial Blood Base Excess 3mmol/L (-3-3) FiO2 35 Lactic Acid Level 2.2mmol/L (0.4-2.0) Troponin I Quantitative 0.032ng/mL (0.000-0.055) Test 01/21/17 01:00 White Blood Count 12.3x10^3/uL (4.0-11.0) Red Blood Count 4.50x10^6/uL (4.30-5.70) Hemoglobin 13.0g/dL (13.0-17.5) Hematocrit 40.2% (39.0-53.0) Mean Corpuscular Volume 89fL (79-100) Mean Corpuscular Hemoglobin 29pg (25-35) Mean Corpuscular Hemoglobin Concent 32g/dL (31-37) Red Cell Distribution Width 14.9% (11.5-14.5) Platelet Count 332x10^3/uL (140-400) Neutrophils (%) (Auto) 89% (31-73) Lymphocytes (%) (Auto) 5% (24-48) Monocytes (%) (Auto) 6% (0-9) Eosinophils (%) (Auto) 0% (0-3) Basophils (%) (Auto) 0% (0-3) Neutrophils # (Auto) 11.0x10^3uL (1.8-7.7) Lymphocytes # (Auto) 0.6x10^3/uL (1.0-4.8) Monocytes # (Auto) 0.7x10^3/uL (0.0-1.1) Eosinophils # (Auto) 0.0x10^3/uL (0.0-0.7) Basophils # (Auto) 0.0x10^3/uL (0.0-0.2) Sodium Level 144mmol/L (136-145) Potassium Level 4.0mmol/L (3.5-5.1) Chloride Level 103mmol/L (98-107) Carbon Dioxide Level 34mmol/L (21-32) Anion Gap 7 (6-14) Blood Urea Nitrogen 28mg/dL (8-26) Creatinine 1.0mg/dL (0.7-1.3) Estimated GFR (Cockcroft-Gault) 70.4 Glucose Level 100mg/dL (70-99) Calcium Level 8.8mg/dL (8.5-10.1) Troponin I Quantitative 0.019ng/mL (0.000-0.055) Review of Systems Review of Systems (+) generalized weakness (+) altered mental status (+) 10lb weight loss ROS limited secondary patient's mental status. Assessment and Plan Assessmemt and Plan Problems Medical Problems: (1) Acute respiratory failure with hypoxia Status: Acute (2) CHF (congestive heart failure) Status: Acute Assessment: 1. Acute hypoxic respiratory failure 2. metabolic encephalopathy, continues to have diminished mentation and consciousness 3. SIRS, POA. probable Sepsis WBC >15, possible sources of infection (lung vs. urine), lactic acid of 2.8, and AMS 3. bronchietasis vs. lower lobe opacities, seen on xray 4. respiratory acidosis, POA, currently resolved 5. frailty with weight loss ; probable failure to thrive 6. leukocytosis, reactive vs. infectious 7. elevated lactate 8. elevated BNP, hold IVF to prevent volume overload. Plan: 1.) continue ICU monitoring and care 2.) maintain O2 saturation >90%, continue duoneb treatments PRN. 3.) f/u blood cultures 4.) continue levofloxacin 5.) appreciate subspecialty input 6.) palliative care consult 7.) check AM labs; replete electrolytes as needed. trend lactate. 8.) dietary consult, recommendations appreciated. swallow study pending 9.) PT/OT 10.) continue discharge planning with SNU evaluation 11.) pending Echocardiogram per cardiology 12.) DVT ppx: lovenox, GI ppx: protonix. Pt is DNR Problems: Comment Review of Relevant I have reviewed the following items gerard (where applicable) has been applied. Labs Laboratory Tests Test 01/20/17 11:20 01/20/17 12:23 01/20/17 12:45 01/20/17 15:15 White Blood Count 15.3x10^3/uL (4.0-11.0) Red Blood Count 5.11x10^6/uL (4.30-5.70) Hemoglobin 14.8g/dL (13.0-17.5) Hematocrit 45.5% (39.0-53.0) Mean Corpuscular Volume 89fL (79-100) Mean Corpuscular Hemoglobin 29pg (25-35) Mean Corpuscular Hemoglobin Concent 33g/dL (31-37) Red Cell Distribution Width 15.0% (11.5-14.5) Platelet Count 414x10^3/uL (140-400) Neutrophils (%) (Auto) 92% (31-73) Lymphocytes (%) (Auto) 4% (24-48) Monocytes (%) (Auto) 4% (0-9) Eosinophils (%) (Auto) 0% (0-3) Basophils (%) (Auto) 0% (0-3) Neutrophils # (Auto) 14.1x10^3uL (1.8-7.7) Lymphocytes # (Auto) 0.6x10^3/uL (1.0-4.8) Monocytes # (Auto) 0.6x10^3/uL (0.0-1.1) Eosinophils # (Auto) 0.0x10^3/uL (0.0-0.7) Basophils # (Auto) 0.0x10^3/uL (0.0-0.2) Segmented Neutrophils % 83% (35-66) Band Neutrophils % 7% (0-9) Lymphocytes % 2% (24-48) Monocytes % 8% (0-10) Platelet Estimate Increased (ADEQUATE) Sodium Level 142mmol/L (136-145) Potassium Level 4.3mmol/L (3.5-5.1) Chloride Level 101mmol/L (98-107) Carbon Dioxide Level 31mmol/L (21-32) Anion Gap 10 (6-14) Blood Urea Nitrogen 23mg/dL (8-26) Creatinine 1.0mg/dL (0.7-1.3) Estimated GFR (Cockcroft-Gault) 70.4 Glucose Level 129mg/dL (70-99) Lactic Acid Level 2.8mmol/L (0.4-2.0) Calcium Level 9.2mg/dL (8.5-10.1) Magnesium Level 2.0mg/dL (1.8-2.4) Total Bilirubin 1.3mg/dL (0.2-1.0) Direct Bilirubin 0.9mg/dL (0.0-0.2) Aspartate Amino Transf (AST/SGOT) 33U/L (15-37) Alanine Aminotransferase (ALT/SGPT) 30U/L (16-63) Alkaline Phosphatase 92U/L (46-116) Troponin I Quantitative 0.018ng/mL (0.000-0.055) [id number]-Type Natriuretic Peptide 2298pg/mL (0-449) Total Protein 8.0g/dL (6.4-8.2) Albumin 2.6g/dL (3.4-5.0) Lipase 74U/L (73-393) O2 Saturation 97% (92-99) 96% (92-99) Arterial Blood pH 7.35 (7.35-7.45) 7.37 (7.35-7.45) Arterial Blood pCO2 at Patient Temp 57mmHg (35-46) 52mmHg (35-46) Arterial Blood pO2 at Patient Temp 115mmHg (65-108) 89mmHg (65-108) Arterial Blood HCO3 31mmol/L (21-28) 29mmol/L (21-28) Arterial Blood Base Excess 3mmol/L (-3-3) 3mmol/L (-3-3) FiO2 40 35 Urine Collection Type Unknown Urine Color Joseline Urine Clarity Clear Urine pH 6.0 Urine Specific [place] 1.020 Urine Protein Negativemg/dL (NEG-TRACE) Urine Glucose (UA) Negativemg/dL (NEG) Urine Ketones (Stick) Tracemg/dL (NEG) Urine Blood Moderate (NEG) Urine Nitrite Negative (NEG) Urine Bilirubin Small (NEG) Urine Urobilinogen Dipstick 2.0mg/dL (0.2 mg/dL) Urine Leukocyte Esterase Moderate (NEG) Urine RBC 6-10/HPF (0-2) Urine WBC 11-20/HPF (0-4) Urine Bacteria Many/HPF (0-FEW) Urine Mucus Mod/LPF Test 01/20/17 15:23 01/20/17 18:30 01/21/17 01:00 Lactic Acid Level 2.2mmol/L (0.4-2.0) Troponin I Quantitative 0.032ng/mL (0.000-0.055) 0.019ng/mL (0.000-0.055) White Blood Count 12.3x10^3/uL (4.0-11.0) Red Blood Count 4.50x10^6/uL (4.30-5.70) Hemoglobin 13.0g/dL (13.0-17.5) Hematocrit 40.2% (39.0-53.0) Mean Corpuscular Volume 89fL (79-100) Mean Corpuscular Hemoglobin 29pg (25-35) Mean Corpuscular Hemoglobin Concent 32g/dL (31-37) Red Cell Distribution Width 14.9% (11.5-14.5) Platelet Count 332x10^3/uL (140-400) Neutrophils (%) (Auto) 89% (31-73) Lymphocytes (%) (Auto) 5% (24-48) Monocytes (%) (Auto) 6% (0-9) Eosinophils (%) (Auto) 0% (0-3) Basophils (%) (Auto) 0% (0-3) Neutrophils # (Auto) 11.0x10^3uL (1.8-7.7) Lymphocytes # (Auto) 0.6x10^3/uL (1.0-4.8) Monocytes # (Auto) 0.7x10^3/uL (0.0-1.1) Eosinophils # (Auto) 0.0x10^3/uL (0.0-0.7) Basophils # (Auto) 0.0x10^3/uL (0.0-0.2) Sodium Level 144mmol/L (136-145) Potassium Level 4.0mmol/L (3.5-5.1) Chloride Level 103mmol/L (98-107) Carbon Dioxide Level 34mmol/L (21-32) Anion Gap 7 (6-14) Blood Urea Nitrogen 28mg/dL (8-26) Creatinine 1.0mg/dL (0.7-1.3) Estimated GFR (Cockcroft-Gault) 70.4 Glucose Level 100mg/dL (70-99) Calcium Level 8.8mg/dL (8.5-10.1) Laboratory Tests Test 01/20/17 12:45 01/20/17 15:15 01/20/17 15:23 01/20/17 18:30 Urine Collection Type Unknown Urine Color Joseline Urine Clarity Clear Urine pH 6.0 Urine Specific [place] 1.020 Urine Protein Negativemg/dL (NEG-TRACE) Urine Glucose (UA) Negativemg/dL (NEG) Urine Ketones (Stick) Tracemg/dL (NEG) Urine Blood Moderate (NEG) Urine Nitrite Negative (NEG) Urine Bilirubin Small (NEG) Urine Urobilinogen Dipstick 2.0mg/dL (0.2 mg/dL) Urine Leukocyte Esterase Moderate (NEG) Urine RBC 6-10/HPF (0-2) Urine WBC 11-20/HPF (0-4) Urine Bacteria Many/HPF (0-FEW) Urine Mucus Mod/LPF O2 Saturation 96% (92-99) Arterial Blood pH 7.37 (7.35-7.45) Arterial Blood pCO2 at Patient Temp 52mmHg (35-46) Arterial Blood pO2 at Patient Temp 89mmHg (65-108) Arterial Blood HCO3 29mmol/L (21-28) Arterial Blood Base Excess 3mmol/L (-3-3) FiO2 35 Lactic Acid Level 2.2mmol/L (0.4-2.0) Troponin I Quantitative 0.032ng/mL (0.000-0.055) Test 01/21/17 01:00 White Blood Count 12.3x10^3/uL (4.0-11.0) Red Blood Count 4.50x10^6/uL (4.30-5.70) Hemoglobin 13.0g/dL (13.0-17.5) Hematocrit 40.2% (39.0-53.0) Mean Corpuscular Volume 89fL (79-100) Mean Corpuscular Hemoglobin 29pg (25-35) Mean Corpuscular Hemoglobin Concent 32g/dL (31-37) Red Cell Distribution Width 14.9% (11.5-14.5) Platelet Count 332x10^3/uL (140-400) Neutrophils (%) (Auto) 89% (31-73) Lymphocytes (%) (Auto) 5% (24-48) Monocytes (%) (Auto) 6% (0-9) Eosinophils (%) (Auto) 0% (0-3) Basophils (%) (Auto) 0% (0-3) Neutrophils # (Auto) 11.0x10^3uL (1.8-7.7) Lymphocytes # (Auto) 0.6x10^3/uL (1.0-4.8) Monocytes # (Auto) 0.7x10^3/uL (0.0-1.1) Eosinophils # (Auto) 0.0x10^3/uL (0.0-0.7) Basophils # (Auto) 0.0x10^3/uL (0.0-0.2) Sodium Level 144mmol/L (136-145) Potassium Level 4.0mmol/L (3.5-5.1) Chloride Level 103mmol/L (98-107) Carbon Dioxide Level 34mmol/L (21-32) Anion Gap 7 (6-14) Blood Urea Nitrogen 28mg/dL (8-26) Creatinine 1.0mg/dL (0.7-1.3) Estimated GFR (Cockcroft-Gault) 70.4 Glucose Level 100mg/dL (70-99) Calcium Level 8.8mg/dL (8.5-10.1) Troponin I Quantitative 0.019ng/mL (0.000-0.055) Microbiology 01/20/17 Blood Culture - Preliminary, Resulted NO GROWTH AFTER 1 DAY Medications Current Medications Albuterol/ Ipratropium (Duoneb) 3 ml 1X ONCE NEB Last administered on 12:06; Start 01/20/17 at 11:45; Stop 01/20/17 at 11:46; Status DC Furosemide 40 mg 40 mg 1X ONCE IVP Last administered on 01/20/17 12:29; Start 01/20/17 at 12:30; Stop 01/20/17 at 12:31; Status DC Azithromycin 250 ml @ 250 mls/hr 1X ONCE IV Last administered on 01/20/17 13 :26; Start 01/20/17 at 12:45; Stop 01/20/17 at 13:44; Status DC Ceftriaxone Sodium 50 ml @ 100 mls/hr 1X ONCE IV ; Start 01/20/17 at 12:45; Stop 01/20/17 at 12:45; Status DC Ceftriaxone Sodium (Rocephin 1gm Ivpb For Omni) 50 ml @ 100 mls/hr 1X ONCE IV Last administered on 01/20/17 13:10; Start 01/20/17 at 12:45; Stop 01/20/17 at 13:14; Status DC Ondansetron HCl (Zofran) 4 mg PRN Q8HRS PRN IV NAUSEA/VOMITING; Start 01/20/17 at 13:00; Stop 01/20/17 at 15:31; Status DC Morphine Sulfate 2 mg PRN Q2HR PRN IV PAIN Last administered on 01/20/17 19:52 ; Start 01/20/17 at 13:00; Stop 01/21/17 at 12:59 Albuterol/ Ipratropium (Duoneb) 3 ml RTQID NEB Last administered on 01/21/17 09:15; Start 01/20/17 at 16:00; Stop 01/21/17 at 15:59 Ondansetron HCl (Zofran) 4 mg PRN Q6HRS PRN IV NAUSEA/VOMITING; Start 01/20/17 at 15:29 Acetaminophen 500 mg 500 mg PRN Q6HRS PRN PO MILD PAIN / TEMP; Start 01/20/17 at 15:30 Levofloxacin/ Dextrose (LEVAQUIN 500mg PREMIX) 100 ml @ 100 mls/hr Q24H IV Last administered on 01/20/17 17:56; Start 01/20/17 at 16:00 Megestrol Acetate (Megace) 20 mg DAILY PO ; Start 01/21/17 at 09:00 Enoxaparin Sodium (Lovenox 40mg Syringe) 40 mg Q24H SQ Last administered on 17:58; Start 01/20/17 at 16:00 Guaifenesin (Robitussin Dm) 10 ml PRN Q6HRS PRN PO COUGH; Start 01/20/17 at 15: 30 Calcium Carbonate/ Glycine (Tums) 500 mg PRN AFTMEALHC PRN PO INDIGESTION; Start 01/20/17 at 15:30 Pantoprazole Sodium (Protonix) 40 mg DAILYAC PO Last administered on 01/20/17 17:58; Start 01/20/17 at 16:00 Pneumococcal Polyvalent Vaccine (Do NOT chart on this placeholder) 1X ONCE MC ; Start 01/20/17 at 16:00; Stop 01/20/17 at 16:01; Status UNV Pneumococcal Polyvalent Vaccine 0.5 ml 0.5 ml ONCE ONCE VAX IM ; Start 01/21/17 at 09:00; Stop 01/21/17 at 09:01; Status DC Sodium Chloride (Iv Sodium Chloride 0.9% 1000ml Bag) 500 ml @ 500 mls/hr 1X ONCE IV Last administered on 01/21/17t 11:15; Start 01/21/17 at 11:15; Stop at 12:14; Status DC Active Scripts Active Reported [nubumetone] 500 Mg BID Lovastatin 40 Mg Tablet 1 Tab PO DAILY Metoprolol Tartrate 100 Mg Tablet 1 Tab PO BID Amlodipine Besylate 5 Mg Tablet 5 Mg PO DAILY Vitals/I & O Vital Sign - Last 24 Hours 01/20/17 01/20/17 01/20/17 01/20/17 12:45 13:00 13:15 13:30 Pulse 108 104 101 102 Resp 45 48 40 44 B/P 113/61 105/60 Pulse Ox 98 97 97 98 O2 Delivery BiPAP/CPAP BiPAP/CPAP BiPAP/CPAP BiPAP/CPAP O2 Flow Rate 35 35 35 35 01/20/17 01/20/17 01/20/17 01/20/17 14:00 14:00 15:00 15:09 Temp 98.7 98.7 Pulse 98 98 Resp 32 32 B/P 95/72 97/56 Pulse Ox 95 98 96 O2 Delivery Bi-pap Nasal Cannula BiPAP/CPAP BiPAP/CPAP O2 Flow Rate 2.0 01/20/17 01/20/17 01/20/17 01/20/17 16:00 16:00 17:00 17:42 Pulse 92 96 Resp 30 28 B/P 78/50 80/46 Pulse Ox 97 98 95 O2 Delivery BiPAP/CPAP Bi-pap BiPAP/CPAP BiPAP/CPAP 01/20/17 01/20/17 01/20/17 01/20/17 18:00 19:00 20:00 20:00 Temp 98.7 98.7 Pulse 95 96 92 Resp 30 28 30 B/P 97/58 97/52 94/50 Pulse Ox 96 98 97 O2 Delivery BiPAP/CPAP BiPAP/CPAP Bi-pap BiPAP/CPAP 01/20/17 01/20/17 01/20/17 01/20/17 20:22 21:00 22:00 23:00 Temp 98.5 98.5 Pulse 96 95 96 Resp 30 28 B/P 95/50 89/52 96/47 Pulse Ox 97 92 93 94 O2 Delivery Nasal Cannula Nasal Cannula Nasal Cannula Nasal Cannula O2 Flow Rate 5.0 4.0 4.0 01/21/17 01/21/17 01/21/17 01/21/17 00:00 00:00 00:00 01:00 Temp 98.5 98.5 Pulse 95 95 96 Resp 30 28 B/P 81/49 89/52 96/47 Pulse Ox 93 93 94 O2 Delivery Nasal Cannula Nasal Cannula Bi-pap Nasal Cannula O2 Flow Rate 4.0 4.0 4.0 01/21/17 01/21/17 01/21/17 01/21/17 02:00 03:00 04:00 04:00 Temp 98.9 98.9 Pulse 96 96 95 Resp 30 B/P 96/47 96/47 102/50 Pulse Ox 94 94 93 O2 Delivery Nasal Cannula Nasal Cannula Nasal Cannula Bi-pap O2 Flow Rate 4.0 4.0 4.0 01/21/17 01/21/17 01/21/17 01/21/17 05:00 06:00 07:00 08:00 Temp 98.7 98.7 Pulse 96 96 96 100 Resp 28 28 B/P 96/47 104/58 98/62 100/53 Pulse Ox 94 94 94 98 O2 Delivery Nasal Cannula Nasal Cannula Nasal Cannula Nasal Cannula O2 Flow Rate 4.0 4.0 4.0 4.0 01/21/17 01/21/17 01/21/17 01/21/17 08:00 09:00 09:15 10:00 Pulse 104 122 Resp 37 40 B/P 96/47 99/82 Pulse Ox 98 98 93 O2 Delivery Nasal Cannula Nasal Cannula Nasal Cannula Nasal Cannula O2 Flow Rate 4.0 4.0 5.0 4.0 01/21/17 01/21/17 01/21/17 11:00 12:00 12:00 Pulse 108 110 Resp 37 37 B/P 95/58 95/46 Pulse Ox 95 97 O2 Delivery Nasal Cannula Nasal Cannula Nasal Cannula O2 Flow Rate 4.0 4.0 4.0 Intake and Output 01/20/17 01/20/17 01/21/17 14:59 22:59 06:59 Intake Total 100 ml 150 ml Output Total 700 ml 1410 ml 360 ml Balance -600 ml -1260 ml -360 ml Nutrition Consultation Dietary Evaluation: Recommendations by RD: Increase Calorie Intake, Protein supplementation Comments: Diet per speech therapy- Rec. add boost plus (Tensed or vanilla) TID when diet is advanced/if medically appropriate Needs assitance cutting foods into small peices Rec. a daily MVT and 500 mg Vitamin C BID when taking PO meds Expected Outcomes/Goals: meet 75% estimated nutrition needs no further wt loss Interpretation of weight loss: >10% in 6 months Malnutrition Findings: Food and Nutrition Intake (Mod: <75% est energy req 7days Body Fat Depletion (Non Severe: Mod to Severe Reduced Html Developer Strength: N/A Reduced Html Developer Strength (Non-Sev: N/A Malnutrition related to morbid: No Weight Status: Underweight Fluid Accumulation (N/A): N/A MAVERICK GRAJEDA III DO Jan 21, 2017 12:41
--- NOTE | 2017-01-21 13:28 | CONS ---
DATE OF CONSULTATION: PULMONARY CONSULTATION ATTENDING PHYSICIAN: Dr. He. REASON FOR CONSULTATION: Dyspnea, respiratory failure, and hypotension. HISTORY OF PRESENT ILLNESS: The patient is an 89-year-old male. He was brought in to [facility] with some altered mental status. His sisters said that he has been declining in-house for the past few months. The patient has lost about 15-20 pounds in the last few months. He has not been eating well since the of his . The patient also has chronic nonresolving cough for a long time and also has been having progressive dyspnea. He is normally not on oxygen. When I saw the patient, he is fully awake and gave me a very detailed history as best as he could. His chest x-ray revealed fibrotic changes at the bases with possible honeycombing. There was no old x-ray available for comparison. He was hypotensive on arrival. He received IV fluids. His BUN and creatinine was 28 and 1.0 suggesting some prerenal azotemia. The patient denies any hemoptysis. His cough has been nonproductive. No fever, no chills. He was started on empiric antibiotics. The patient has no significant history of tobacco use. Consultation requested for further evaluation and management. His lactic acid was also mildly elevated and his urine is suggestive of urinary tract infection. He had many bacteria in the urine. PAST MEDICAL HISTORY: No chronic medical conditions except for weight loss over 20+ pounds. No significant history of tobacco use. FAMILY HISTORY: Noncontributory to lungs. SOCIAL HISTORY: Denies any history of tobacco use. No history of alcohol use. ALLERGIES: None. CURRENT MEDICATIONS: Reviewed as listed in the MRAD including antibiotics, bronchodilators, oxygen, and Lovenox for DVT prophylaxis. REVIEW OF SYSTEMS: Twelve-point systems obtained. Pertinent positives discussed in history of present illness, otherwise noncontributory. All systems that were negative were reviewed as well. PHYSICAL EXAMINATION: VITAL SIGNS: Blood pressure 104/58, afebrile, pulse ox 94% on 4 liters. NECK: Supple, no JVD. LUNGS: With crackles one-third of the bases. CARDIOVASCULAR: Regular rate and rhythm. ABDOMEN: Soft, nontender. EXTREMITIES: With no pitting edema. LABORATORY DATA: Reviewed. His chemistries with a BUN of , creatinine 1.0. , hemoglobin is 13.0 and platelets 332. IMPRESSION: 1. Acute hypoxic respiratory failure, I suspect this is most likely secondary to end-stage pulmonary fibrosis. Clinically, less likely superimposed pneumonia. The patient has never been diagnosed with pulmonary fibrosis, but has progressive dyspnea for the past many months and also had chronic persistent cough. 2. No significant history of tobacco use. 3. Hypotension secondary to hypovolemia and possible early sepsis related to urinary tract infection. 4. Abnormal chest x-ray with diffuse fibrotic changes and possible honeycombing and traction bronchiectasis at the bases. We will obtain noncontrast CT chest for further evaluation. 5. Unexplained weight loss. No signs of malignancy, but we will do a CT chest, abdomen and pelvis for further evaluation. The weight loss may be a manifestation of his end-stage pulmonary fibrosis. RECOMMENDATIONS: 1. Continue with present oxygen, this may be the best medicine for his fibrosis. 2. Continue present bronchodilators. 3. Empiric antibiotic. 4. Follow urine cultures. 5. Noncontrast CT chest, abdomen, and pelvis. The CT chest to assess for fibrotic lung disease and also CT abdomen and pelvis to rule out any occult malignancy. 6. Obtain echocardiogram. 7. I have discussed at length the advanced directives with the patient and the entire family. They all agreed for a comfort level approach. DNR/DNI. They are thinking of home hospice once he is stabilized. Discussed with RN and RT as well. Critical care time 45 minutes. THAD EATON MD DR: CESAR/eulogio JOB#: [id number] / [id number] ELHAM
--- NOTE | 2017-01-21 13:40 | CARD ---
APPROVED REPORT EXAM: LIMITED Two-dimensional echocardiogram with Doppler and color Doppler. Other Information Quality : Technically Limited Rhythm : NSRTechnically limited study due to body habitus. INDICATION Dyspnea 2D DIMENSIONS Left Atrium(2D)3.8 (1.6-4.0cm)IVSd0.9 (0.7-1.1cm) Aortic Root(2D)2.8 (2.0-3.7cm)LVDd4.1 (3.9-5.9cm) PWd0.9 (0.7-1.1cm)LVDs3.0 (2.5-4.0cm) FS (%) 26.8 %SV39.5 ml LVEF(%)52.8 (>50%) Tricuspid Valve TR P. [id number] TR Peak [id number] LEFT VENTRICLE The left ventricle is normal size. There is normal left ventricular wall thickness. Left ventricle sy stolic function is normal. The Ejection Fraction is 50-55%. There is normal LV segmental wall motion. RIGHT VENTRICLE The right ventricle is normal size. The right ventricular systolic function is normal. ATRIA The left atrium size is normal. The right atrium is not well visualized. AORTIC VALVE The aortic valve is calcified but appears to open well. MITRAL VALVE Mitral annular calcification is mild to moderate. TRICUSPID VALVE The tricuspid valve is normal in structure. Doppler and Color Flow revealed mild tricuspid regurgitat ion. The PA pressure was estimated at 57 mmHg. PULMONIC VALVE The pulmonic valve was not visualized. GREAT VESSELS The aortic root is normal in size. The ascending aorta is Mildly dilated at 3.75 cm The IVC was not v isualized. PERICARDIAL EFFUSION There is no evidence of significant pericardial effusion. Critical Notification Critical Value: No <Conclusion> Left ventricle systolic function is normal. The Ejection Fraction is 50-55%. There is normal LV segmental wall motion. Doppler and Color Flow revealed mild tricuspid regurgitation. The PA pressure was estimated at 57 mmH g. The ascending aorta is Mildly dilated at 3.75 cm
[2017-01-21] MEDS ORDERED: SCOPOLAMINE 1.5MG PATCH. TD SCH (14:30)
[2017-01-21] MEDS ORDERED: MORPHINE SULFATE 2 MG/ML DISP.SYRIN. IV PRN ×2 (14:30)
--- NOTE | 2017-01-21 14:31 | PDOC2 ---
PALLIATIVE CARE Palliative Care Note Palliative Care Patient wanting to drink. Daughters declined swallow evaluation, CT scan. Patient and daughters Nelida and Carlie want to focus no comfort. Patient requested something to drink. Daughters insist on giving patient water. Understands patient at high risk for aspiration/pneumonia and possible Patient telling daughters "goodbye" Orders received from Dr Martin to focus on comfort. Discussed options form comfort care at home. Declined Code Status: DNR/DNI 1851; Resting comfortably after Morphine. Family would like home with hospice if patient stable. Daughter who is a nurse will be here this pm Will eval in am. No preference of Hospice Agency. JAMES TERRAZAS Jan 21, 2017 14:31
[2017-01-21] MEDS: MORPHINE SULFATE 2 MG/ML DISP.SYRIN. IV PRN ×4 (14:32→21:10)
--- NOTE | 2017-01-21 22:10 | PDOC ---
Provider Note Provider Note Family prefers to go for palliative approach. ct scans cancelled. home with hospice soon THAD EATON MD Jan 21, 2017 22:10
[2017-01-22] MEDS: MORPHINE SULFATE 2 MG/ML DISP.SYRIN. IV PRN ×5 (00:21→20:00)
[2017-01-22 07:00] VITALS: BP 83/42
--- NOTE | 2017-01-22 09:59 | PDOC2 ---
PALLIATIVE CARE Palliative Care Note Palliative Care Patient unresponsive to verbal stimuli. B/P 83/42 RR 20. unlabored respirations. Last dose of Morphine 1mg at 0400. Family at bedside. Questions answered. Spring (daughter from [place]) asking about more testing to determine if patient has cancer. Informed goal of comfort care was established and so no further testing will be done. Family would like to take patient home with [facility] if discharged. JAMES TERRAZAS Jan 22, 2017 09:59
[2017-01-22 11:00] VITALS: BP 85/35
--- NOTE | 2017-01-22 14:08 | PDOC ---
PROGRESS NOTES Chief Complaint Chief Complaint CC: acute hypoxic respiratory failure, AMS 1. Acute hypoxic respiratory failure 2. metabolic encephalopathy, continues to have diminished mentation 3. SIRS, POA. probable Sepsis WBC >15, possible sources of infection (lung vs. urine), lactic acid of 2.8, and AMS 3.lower lobe opacities, 4. respiratory acidosis, POA, currently resolved 5. frailty with weight loss ; probable failure to thrive 6. leukocytosis, reactive vs. infectious Plan: Pt was admitted to ICU and later comfort care measures initiated and transferred patient med/surg floor, d/w family at bedside, would like to take him home as pt contine to decline clinically, possible DC today to home with hospice. continue current care. Prognosis poor. History of Present Illness History of Present Illness shallow breathing hypotension not arousable. Vitals Vitals Vital Signs Date Time Temp Pulse Resp B/P Pulse Ox O2 Delivery O2 Flow Rate FiO2 01/22/17 13:23 Nasal Cannula 4.0 01/22/17 12:50 96 01/22/17 11:00 98.4 108 20 85/35 98.4 Physical Exam General: No acute distress, Other (frail, facial wasting, malnourished appearing ) Heart: Normal S1, Normal S2, Other (tachycardic ) Lungs: Other (coarse and diminished breath sounds bilaterally. On 4L NC. negative chest retractions and/or other accessory muscle use ) Abdomen: Soft Extremities: No edema, Normal pulses Skin: No significant lesion Assessment and Plan Assessmemt and Plan Problems Medical Problems: (1) Acute respiratory failure with hypoxia Status: Acute (2) CHF (congestive heart failure) Status: Acute Problems: Comment Review of Relevant I have reviewed the following items gerard (where applicable) has been applied. Labs Laboratory Tests Test 01/20/17 15:15 01/20/17 15:23 01/20/17 18:30 01/20/17 19:00 O2 Saturation 96% (92-99) Arterial Blood pH 7.37 (7.35-7.45) Arterial Blood pCO2 at Patient Temp 52mmHg (35-46) Arterial Blood pO2 at Patient Temp 89mmHg (65-108) Arterial Blood HCO3 29mmol/L (21-28) Arterial Blood Base Excess 3mmol/L (-3-3) FiO2 35 Lactic Acid Level 2.2mmol/L (0.4-2.0) Troponin I Quantitative 0.032ng/mL (0.000-0.055) Nasal Screen MRSA (PCR) Negative (Negative) Test 01/21/17 01:00 01/21/17 13:45 White Blood Count 12.3x10^3/uL (4.0-11.0) Red Blood Count 4.50x10^6/uL (4.30-5.70) Hemoglobin 13.0g/dL (13.0-17.5) Hematocrit 40.2% (39.0-53.0) Mean Corpuscular Volume 89fL (79-100) Mean Corpuscular Hemoglobin 29pg (25-35) Mean Corpuscular Hemoglobin Concent 32g/dL (31-37) Red Cell Distribution Width 14.9% (11.5-14.5) Platelet Count 332x10^3/uL (140-400) Neutrophils (%) (Auto) 89% (31-73) Lymphocytes (%) (Auto) 5% (24-48) Monocytes (%) (Auto) 6% (0-9) Eosinophils (%) (Auto) 0% (0-3) Basophils (%) (Auto) 0% (0-3) Neutrophils # (Auto) 11.0x10^3uL (1.8-7.7) Lymphocytes # (Auto) 0.6x10^3/uL (1.0-4.8) Monocytes # (Auto) 0.7x10^3/uL (0.0-1.1) Eosinophils # (Auto) 0.0x10^3/uL (0.0-0.7) Basophils # (Auto) 0.0x10^3/uL (0.0-0.2) Sodium Level 144mmol/L (136-145) Potassium Level 4.0mmol/L (3.5-5.1) Chloride Level 103mmol/L (98-107) Carbon Dioxide Level 34mmol/L (21-32) Anion Gap 7 (6-14) Blood Urea Nitrogen 28mg/dL (8-26) Creatinine 1.0mg/dL (0.7-1.3) Estimated GFR (Cockcroft-Gault) 70.4 Glucose Level 100mg/dL (70-99) Calcium Level 8.8mg/dL (8.5-10.1) Troponin I Quantitative 0.019ng/mL (0.000-0.055) Lactic Acid Level 1.8mmol/L (0.4-2.0) Microbiology 01/20/17 Blood Culture - Preliminary, Resulted NO GROWTH AFTER 2 DAYS 01/20/17 Urine Culture - Preliminary, Resulted 01/20/17 Urine Culture Result 1 (LLUVIA) - Preliminary, Resulted Medications Current Medications Albuterol/ Ipratropium (Duoneb) 3 ml 1X ONCE NEB Last administered on 12:06; Start 01/20/17 at 11:45; Stop 01/20/17 at 11:46; Status DC Furosemide 40 mg 40 mg 1X ONCE IVP Last administered on 01/20/17 12:29; Start 01/20/17 at 12:30; Stop 01/20/17 at 12:31; Status DC Azithromycin 250 ml @ 250 mls/hr 1X ONCE IV Last administered on 01/20/17 13 :26; Start 01/20/17 at 12:45; Stop 01/20/17 at 13:44; Status DC Ceftriaxone Sodium 50 ml @ 100 mls/hr 1X ONCE IV ; Start 01/20/17 at 12:45; Stop 01/20/17 at 12:45; Status DC Ceftriaxone Sodium (Rocephin 1gm Ivpb For Omni) 50 ml @ 100 mls/hr 1X ONCE IV Last administered on 01/20/17 13:10; Start 01/20/17 at 12:45; Stop 01/20/17 at 13:14; Status DC Ondansetron HCl (Zofran) 4 mg PRN Q8HRS PRN IV NAUSEA/VOMITING; Start 01/20/17 at 13:00; Stop 01/20/17 at 15:31; Status DC Morphine Sulfate 2 mg PRN Q2HR PRN IV PAIN Last administered on 01/20/17 19:52 ; Start 01/20/17 at 13:00; Stop 01/21/17 at 12:59; Status DC Albuterol/ Ipratropium (Duoneb) 3 ml RTQID NEB Last administered on 01/21/17 16:03; Start 01/20/17 at 16:00; Stop 01/21/17 at 15:59; Status DC Ondansetron HCl (Zofran) 4 mg PRN Q6HRS PRN IV NAUSEA/VOMITING; Start 01/20/17 at 15:29 Acetaminophen 500 mg 500 mg PRN Q6HRS PRN PO MILD PAIN / TEMP; Start 01/20/17 at 15:30 Levofloxacin/ Dextrose (LEVAQUIN 500mg PREMIX) 100 ml @ 100 mls/hr Q24H IV Last administered on 01/20/17 17:56; Start 01/20/17 at 16:00; Stop 01/21/17 at 14:23; Status DC Megestrol Acetate (Megace) 20 mg DAILY PO ; Start 01/21/17 at 09:00; Stop at 14:23; Status DC Enoxaparin Sodium (Lovenox 40mg Syringe) 40 mg Q24H SQ Last administered on 17:58; Start 01/20/17 at 16:00; Stop 01/21/17 at 14:23; Status DC Guaifenesin (Robitussin Dm) 10 ml PRN Q6HRS PRN PO COUGH; Start 01/20/17 at 15: 30 Calcium Carbonate/ Glycine (Tums) 500 mg PRN AFTMEALHC PRN PO INDIGESTION; Start 01/20/17 at 15:30; Stop 01/21/17 at 14:23; Status DC Pantoprazole Sodium (Protonix) 40 mg DAILYAC PO Last administered on 01/20/17 17:58; Start 01/20/17 at 16:00; Stop 01/21/17 at 14:23; Status DC Pneumococcal Polyvalent Vaccine (Do NOT chart on this placeholder) 1X ONCE MC ; Start 01/20/17 at 16:00; Stop 01/20/17 at 16:01; Status UNV Pneumococcal Polyvalent Vaccine 0.5 ml 0.5 ml ONCE ONCE VAX IM ; Start 01/21/17 at 09:00; Stop 01/21/17 at 14:23; Status DC Sodium Chloride (Iv Sodium Chloride 0.9% 1000ml Bag) 500 ml @ 500 mls/hr 1X ONCE IV Last administered on 01/21/17 11:15; Start 01/21/17 at 11:15; Stop at 14:23; Status DC Morphine Sulfate 1 mg Q1HR PRN IV PAIN Last administered on 01/22/17 12:50; Start 01/21/17 at 14:30 Morphine Sulfate 1 mg PRN Q2HR PRN IV PAIN; Start 01/21/17 at 14:30; Stop 01/21 at 14:30; Status DC Morphine Sulfate 2 mg PRN Q2HR PRN IV PAIN; Start 01/21/17 at 14:30; Stop 01/21 at 14:30; Status DC Morphine Sulfate 2 mg PRN Q1HR PRN IV PAIN Last administered on 01/21/17 21:10 ; Start 01/21/17 at 14:30 Scopolamine (Transderm-Scop) 1 patch Q3DAYS TD Last administered on 01/21/17 15:50; Start 01/21/17 at 14:30 Active Scripts Active Reported [nubumetone] 500 Mg BID Lovastatin 40 Mg Tablet 1 Tab PO DAILY Metoprolol Tartrate 100 Mg Tablet 1 Tab PO BID Amlodipine Besylate 5 Mg Tablet 5 Mg PO DAILY Vitals/I & O Vital Sign - Last 24 Hours 01/21/17 01/21/17 01/21/17 01/21/17 14:32 15:00 15:02 15:36 Temp 99.1 99.1 Pulse 96 106 Resp 34 32 20 28 B/P 102/49 98/49 Pulse Ox 88 91 92 O2 Delivery Nasal Cannula Nasal Cannula Nasal Cannula O2 Flow Rate 4.0 4.0 4.0 01/21/17 01/21/17 01/21/17 01/21/17 15:47 16:04 19:30 20:19 Temp 96.7 96.7 Pulse 134 Resp 28 24 B/P 110/96 Pulse Ox 97 96 O2 Delivery Room Air Nasal Cannula Nasal Cannula Nasal Cannula O2 Flow Rate 4.0 4.0 4.0 01/21/17 01/21/17 01/21/17 01/21/17 20:49 21:00 21:10 21:40 Resp 22 Pulse Ox 96 96 O2 Delivery Nasal Cannula Nasal Cannula Nasal Cannula O2 Flow Rate 4.0 4.0 4.0 01/22/17 01/22/17 01/22/17 01/22/17 00:21 01:39 04:03 04:33 Pulse Ox 96 96 96 96 O2 Delivery Nasal Cannula Nasal Cannula Nasal Cannula O2 Flow Rate 4.0 4.0 4.0 01/22/17 01/22/17 01/22/17 01/22/17 07:00 08:00 08:00 11:00 Temp 98.2 98.4 98.2 98.4 Pulse 107 108 Resp 24 20 B/P 83/42 85/35 Pulse Ox 99 96 O2 Delivery Nasal Cannula Nasal Cannula Nasal Cannula Nasal Cannula O2 Flow Rate 4.0 2.0 4.0 4.0 01/22/17 01/22/17 12:50 13:23 Pulse Ox 96 O2 Delivery Nasal Cannula Nasal Cannula O2 Flow Rate 4.0 4.0 Intake and Output 01/21/17 01/21/17 01/22/17 15:00 23:00 07:00 Intake Total 60 ml 30 ml 0 ml Output Total 70 ml 0 ml Balance -10 ml 30 ml 0 ml Nutrition Consultation Dietary Evaluation: Recommendations by RD: Increase Calorie Intake, Protein supplementation Comments: Diet per speech therapy- Rec. add boost plus ([place] or vanilla) TID when diet is advanced/if medically appropriate Needs assitance cutting foods into small peices Rec. a daily MVT and 500 mg Vitamin C BID when taking PO meds Expected Outcomes/Goals: meet 75% estimated nutrition needs no further wt loss Interpretation of weight loss: >10% in 6 months Malnutrition Findings: Food and Nutrition Intake (Mod: <75% est energy req 7days Body Fat Depletion (Non Severe: Mod to Severe Reduced Therapy Coordinator Strength: N/A Reduced Therapy Coordinator Strength (Non-Sev: N/A Malnutrition related to morbid: No Weight Status: Underweight Fluid Accumulation (N/A): N/A CRISTO RIVAS MD Jan 22, 2017 14:08
[2017-01-22] MEDS ORDERED: MORP10SO PO (14:43)
[2017-01-22 15:00] VITALS: BP 67/30
--- NOTE | 2017-01-22 15:21 | PDOC2 ---
PALLIATIVE CARE Palliative Care Note Palliative Care Spoke with family. They want to take patient home with hospice. Have spoke with Dr. Rosenbaum. Outside the Hospital DNR/DNI formed signed by daughter. Hospice services reviewed in detail. Requested prescriptions for comfort care from Dr. Rodas. DME: oxygen. Family declines hospital bed. [facility] family. JAMES TERRAZAS Jan 22, 2017 15:21
[2017-01-22] MEDS ORDERED: LORAZEPAM 2 MG/ML VIAL. IV PRN (17:30)
[2017-01-22 19:00] VITALS: BP 69/32
--- NOTE | 2017-01-23 00:24 | DS ---
DATE OF DISCHARGE: 01/22/2017 DISCHARGE DIAGNOSES: 1. Acute hypoxic respiratory failure. 2. Hypotension secondary to possible hypovolemia and early sepsis. 3. Abnormal chest x-ray with infiltrates. 4. Unexplained weight loss, questionable malignancy. 5. Failure to thrive. 6. Possible sepsis at presentation. 7. Respiratory acidosis. 8. Frailty with weight loss, failure to thrive. 9. Leukocytosis. 10. Metabolic encephalopathy. BRIEF HOSPITAL COURSE: An 89-year-old male patient was admitted to the hospital on 01/20/[address]. Initially, the patient was admitted to Critical Care Unit and broad-spectrum antibiotics has been started and also patient was placed on p.r.n. BiPAP. He appears to be very thin, malnourished, and dehydrated with failure to thrive. Also he had encephalopathy. Given his comorbid conditions and physical condition and the acuity of his illness, palliative team has been consulted by Dr. Martni and the family met with palliative team and they would like to treat him comfortably with DNR/DNI and comfort care measures. Later, the patient has been discharged to med/surg floor and I saw the patient today. Discussed with the family members, they are all agreeable to take him home with comfort care measures given his prognosis and quality of life is very poor. At the time of my examination, the patient is encephalopathic, difficult to arouse and he had a rapid breathing with hypotension. He has been treated with IV morphine and p.r.n. Ativan for his anxiety and family discussed with social media strategist. They are scheduled to go today with hospice followup. DISCHARGE EXAMINATION: Please see my progress note. DISCHARGE CONDITION: Poor. PROGNOSIS: Poor. DISCHARGE MEDICATIONS: 1. Morphine sulfate 15 mg every 4 hours as needed for hypoxia. 2. Supplemental oxygen. FOLLOWUP: with home hospice. Total time spent for discharge is 32 minutes for patient education, counseling, and coordination of care. Case discussed with the palliative team, family members and RN. CRISTO RIVAS MD DR: NATY/eulogio JOB#: [id number] / [id number]
== END 2017-01-22 20:00 | disposition hospice, home (50) | DRG 871 ==
LOC: ER 11:17 → 1 WEST ICU 13:00 → 6 SOUTH 01-21 15:30
PROVIDERS: ADMIT Internal Medicine; ATTEND Internal Medicine
PROC: 5A09457 Assistance with Respiratory Ventilation, 24-96 Consecutive Hours, Continuous Positive Airway Pressure (ICD-10-PCS; principal; 2017-01-20)
DX: A41.9 Sepsis, unspecified organism (principal); J96.01 Acute respiratory failure with hypoxia; G93.41 Metabolic encephalopathy; E44.0 Moderate protein-calorie malnutrition; R64 Cachexia; N39.0 Urinary tract infection, site not specified; J47.0 Bronchiectasis with acute lower respiratory infection; Z68.1 Body mass index [BMI] 19.9 or less, adult; E78.00 Pure hypercholesterolemia, unspecified; E78.5 Hyperlipidemia, unspecified; F41.9 Anxiety disorder, unspecified; I11.0 Hypertensive heart disease with heart failure; Z51.5 Encounter for palliative care; Z66 Do not resuscitate; Z96.653 Presence of artificial knee joint, bilateral; R62.7 Adult failure to thrive; I70.0 Atherosclerosis of aorta; I50.9 Heart failure, unspecified; E86.1 Hypovolemia; M19.90 Unspecified osteoarthritis, unspecified site; Z60.2 Problems related to living alone; Z82.49 Family history of ischemic heart disease and other diseases of the circulatory system; Z91.81 History of falling; Z87.891 Personal history of nicotine dependence; Z79.899 Other long term (current) drug therapy; Z79.2 Long term (current) use of antibiotics; Z71.89 Other specified counseling; Z79.1 Long term (current) use of non-steroidal anti-inflammatories (NSAID)
CPT/HCPCS: 36415; 36600; 51702; 71010; 80048; 80076; 81001; 82805; 83605; 83690; 83735; 83880; 84484; 85007; 85027; 87040; 87086; 87186; 87641; 93005; 93308; 94640; 94660; 96365; 96368; A4314; J0456; J0690; J1650; J1940; J1956; J2060; J2270; J7030; J7620; 99291-25